=== PATIENT | female | born 1970 | race Two or more races ===

== ENCOUNTER → 2017-03-11 | Outpatient (CLI) | payer OTHER ==
--- NOTE | 2017-03-12 09:47 | Diagnostic Imaging Report ---
Indication: Abdominal pain Technique: MRCP performed without intravenous contrast. Comparison: None Findings: Gallbladder is absent with reported history of cholecystectomy. There is a 4 mm low signal focus within the distal common bile duct series 5 image 26 suggestive of a small choledocholith. The common bile duct measures 6 mm in caliber. Examination is not optimized for evaluation of solid organs without gross focal abnormality of the liver, adrenal glands, kidneys, spleen or pancreas. Visualized abdominal aorta is normal in caliber. Posterior changes of the upper abdominal wall are seen. Impression: Cholecystectomy. Approximately 4 mm low signal focus within the distal common bile duct series 5 image 26 suggestive of a small choledocholith. ERCP may be obtained for further evaluation as indicated.
== END | disposition home or self-care (01) ==
LOC: MRI 16:50
DX: R10.9 Unspecified abdominal pain (principal); Z90.49 Acquired absence of other specified parts of digestive tract
CPT/HCPCS: 74181